=== PATIENT | male | born 1990 | race Caucasian/White ===

== ENCOUNTER 2017-09-23 16:58 | Emergency (ER) | payer SELFPAY ==
[2017-09-23] MEDS ORDERED: ALBUTEROL INH PREPACK MDI TAKEHOME ONE (18:30)
--- NOTE | 2017-09-23 18:30 | EDPHY ---
General - History Smoking Status: Former smoker Time Seen by Provider: 09/23/17 18:23 Narrative: CHIEF COMPLAINT: Cough HISTORY OF PRESENT ILLNESS: Patient presents with complaints of cough. He reports he has had a cough for nearly 2 months. He says this started with started using electronic cigarette vaporizer. He reports intermittent cough that never goes away. It is worse in the mornings when lying supine. Minimal improvement throughout the day. He has taken tuqb-qpf-kctakqn Tylenol. He has had no chest pain or shortness of breath. No fever. He has had some runny nose, sinus congestion, occasional sore throat. No abdominal urinary complaints. No headache, neck pain or stiffness. No other associated complaints or modifying factors. REVIEW OF SYSTEMS: Ten systems reviewed and are negative unless otherwise noted in the HPI PCP: [facility] SPECIALISTS: None PAST MEDICAL HISTORY: Polycystic kidney disease. PAST SURGICAL HISTORY: No surgical history SOCIAL HISTORY: Lives and works here independently. Admits to electronic cigarette use. Occasional alcohol use. Occasional illicit substance use FAMILY HISTORY: Noncontributory EXAMINATION General Appearance: Alert, no distress. Well-developed well-nourished. Head: normocephalic, atraumatic Eyes: Pupils equal and round, no conjunctival pallor or injection ENT, Mouth: Mucous membranes moist. Uvula is midline. Airway is widely patent. No trismus Neck: Normal inspection, supple, non-tender. No meningismus Respiratory: Scattered rhonchi with minimal expiratory wheezes. No consolidation or diminishment. No retractions or distress. Cardiovascular: Regular rate and rhythm. No murmur Neurological: A&O, nonfocal, normal gait Skin: Warm and dry, no rash no petechiae or purpura Extremities: Nontender, no pedal edema Psychiatric: Mood and affect normal DIFFERENTIAL DIAGNOSES: Including but not limited to viral bronchitis, bacterial bronchitis, chronic bronchitis, inflammatory bronchitis, pneumonia, pneumonitis, influenza, RSV MDM: 6:30 p.m. Acute bronchitis with possible involvement of his electronic cigarette use. His vital signs are within normal limits. He is in no acute distress. He does not want a chest x-ray performed due to a fear of the cost associated with. I do feel it is reasonable to treat him with antibiotics given the duration of the symptoms. We discussed the possibility of viral and other etiologies, and that this may not be helpful. We discussed short course of steroid, over-the- counter anti tussive and mucolytics. We discussed ED precautions and follow up with [facility]. I have answered all of his questions, he is comfortable this plan, and he is discharged home stable condition. SUPERVISION: This patient was independently evaluated without direct involvement of or examination by the attending physician. (Biju Polk) Discussion: The patient was evaluated and managed by the Physician Child Welfare Worker. My co- signature indicates that I have reviewed this chart and I agree with the findings and plan of care as documented. I am the secondary supervising physician. (Mallorie Alexander) - Objective Vital Signs: Initial Vital Signs Temperature (C) 36.6 C 09/23/17 17:08 Heart Rate 61 09/23/17 17:08 Respiratory Rate 18 09/23/17 17:08 Blood Pressure 167/110 H 09/23/17 17:08 O2 Sat (%) 98 09/23/17 17:08 O2 Delivery Mode Room Air Allergies/Adverse Reactions: No Known Allergies Allergy (Verified 09/23/17 17:07) Home Medications: Medication Instructions Recorded Azithromycin [Zithromax] 250 mg PO DAILY #6 tab 09/23/17 Dexamethasone [Decadron 4 MG (*)] 8 mg PO DAILY #4 tab 09/23/17 hydrOXYzine HCL [Hydroxyzine HCl] 50 mg PO Q6-8PRN PRN #12 tablet 09/23/17 Medications Given: Discontinued Medications Albuterol Sulfate (Proventil Inh Prepack) 1 mdi FRANCES HONG ONE Stop: 09/23/17 18:31 Last Admin: 09/23/17 18:52 Dose: 1 mdi Departure - Departure Disposition: Home, Routine, Self-Care Clinical Impression: Acute bronchitis Upper respiratory infection Qualifiers: URI type: unspecified URI Qualified Code(s): J06.9 - Acute upper respiratory infection, unspecified Condition: Good Instructions: Acute Bronchitis (ED) Additional Instructions: 1. Prescription dexamethasone as prescribed 1 dose today and 1 additional dose tomorrow 2. Prescription azithromycin to completion 3. Mhmt-utl-abdquqq dextromethorphan for cough as instructed on the box 4. Nqra-kfc-rclgxcm Mucinex for expectorant/mucous relief as instructed on the box 5. Gcyg-qbl-irshrtj ibuprofen, 400-600 mg every 6-8 hours as needed 6. Hydroxyzine as prescribed as needed for anxiety 7. Contact [facility] for outpatient care 8. ED precautions as discussed Referrals: [facility],. [Clinic] - As per Instructions Ro Parsons MD [Medical Doctor] - As per Instructions Stand Alone Forms: Work Excuse Prescriptions: Azithromycin [Zithromax] 250 mg PO DAILY #6 tab Dexamethasone [Decadron 4 MG (*)] 8 mg PO DAILY #4 tab hydrOXYzine HCL [Hydroxyzine HCl] 50 mg PO Q6-8PRN PRN #12 tablet PRN Reason: Anxiety
[2017-09-23 19:04] VITALS: BP 122/69
== END 2017-09-23 19:01 | disposition home or self-care (01) ==
DX: J20.9 Acute bronchitis, unspecified (principal); J06.9 Acute upper respiratory infection, unspecified; Z87.891 Personal history of nicotine dependence

== ENCOUNTER 2018-04-20 12:50 | Emergency (ER) | payer MEDICAID, OTHER ==
[2018-04-20 12:56] VITALS: BP 146/79
--- NOTE | 2018-04-20 13:47 | EDPHY ---
H & P Stated Complaint: cough x 2 months/noted blood at r tonsillar area post coughing Time Seen by Provider: 04/20/18 13:37 HPI/ROS: CHIEF COMPLAINT: Bleeding from tonsil HISTORY OF PRESENT ILLNESS: The patient presents the ED after he noticed some bleeding from his right tonsil. The patient has had a several month history of tonsillar enlargement. He has been bothered by a chronic dry coughed. The patient reports that he is currently working with his primary care provider for evaluation of more significant neurologic issues. Patient reported that he had had fairly heavy bleeding earlier today which resolved. REVIEW OF SYSTEMS: A comprehensive 10 point review of systems is otherwise negative aside from elements mentioned in the history of present illness. Source: Patient - Personal History Current Tetanus Diphtheria and Acellular Pertussis (TDAP): Yes - Medical/Surgical History Hx Asthma: No Hx Chronic Respiratory Disease: No Hx Diabetes: No Hx Cardiac Disease: No Hx Renal Disease: Yes Hx Cirrhosis: No Hx Alcoholism: No Hx HIV/AIDS: No Hx Splenectomy or Spleen Trauma: No Other PMH: polycystic kidney disease - Social History Smoking Status: Former smoker - Physical Exam Exam: General Appearance: Alert, no distress Eyes: Pupils equal and round no pallor or injection ENT, Mouth: Bilateral tonsillar hypertrophy, ulcerative lesion noted on the right tonsil now hemostatic Respiratory: There are no retractions, lungs are clear to auscultation Cardiovascular: Regular rate and rhythm Gastrointestinal: Abdomen is soft and nontender, no masses, bowel sounds normal Neurological: A&O, normal motor function, normal sensory exam, normal cranial nerves Skin: Warm and dry, no rashes Musculoskeletal: Neck is supple nontender Extremities: symmetrical, full range of motion Psychiatric: Patient is oriented X 3, there is no agitation Constitutional: Initial Vital Signs Temperature (C) 37 C 04/20/18 12:53 Heart Rate 56 L 04/20/18 12:53 Respiratory Rate 18 04/20/18 12:53 Blood Pressure 146/79 H 04/20/18 12:53 O2 Sat (%) 98 04/20/18 12:53 O2 Delivery Mode Room Air Allergies/Adverse Reactions: No Known Allergies Allergy (Verified 04/20/18 12:53) Home Medications: Medication Instructions Recorded NK [No Known Home Meds] 04/20/18 Medical Decision Making ED Course/Re-evaluation: Patient presents to the ED with bleeding from a tonsil now resolved from a ulcerated lesion noted to the tonsil. The patient will be referred to our on-call Ear Nose Throat physician for further evaluation. Patient has no clinical evidence of pneumonia or pharyngitis. Patient is instructed to return to the ED for uncontrolled bleeding or other concerns. I spoke with Sho Clark from ENT who will evaluate the patient office now. Departure - Departure Disposition: Home, Routine, Self-Care Clinical Impression: Hemorrhage of tonsil Condition: Good Additional Instructions: 1. Please go to [facility] for evaluation of the lesions seen on your tonsil. They are expecting you and you will be seen by Sho Clark. Referrals: Sho Clark PA [Physician City Editor] - As per Instructions
== END 2018-04-20 13:57 | disposition home or self-care (01) ==
DX: J35.8 Other chronic diseases of tonsils and adenoids (principal)

== ENCOUNTER 2018-05-16 14:33 | Emergency (ER) | payer OTHER ==
--- NOTE | 2018-05-16 15:16 | EDPHY ---
H & P Time Seen by Provider: 05/16/18 15:15 HPI/ROS: CHIEF COMPLAINT: Palpitations, heart skipping a beat HISTORY OF PRESENT ILLNESS: Patient started feeling symptoms 90 min prior to arrival, he says around 1:45 p.m. Today. He had stressful weekend with a lot of work and extra drinking. He says he does not drink every day. Over the past hour and a half since 1:45 p.m. He says he feels like his heart is pounding in his chest and little bit irregular. He had a couple episodes of sweatiness with nausea and feeling lightheaded but no actual fainting or syncope. Denies leg swelling chest pain or shortness of breath. He did state he was feeling anxious and hyperventilating a little bit in his fingers feel tingly but that is better now. No vomiting or diarrhea, no cough or shortness of breath. REVIEW OF SYSTEMS: Eye: no change in vision ENT: no sore throat Cardiac: HPI Pulmonary: no cough or SOB Abdomen: no vomiting, diarrhea, abdominal pain Musculoskeletal: no back pain Skin: no rash Neuro: no headache Constitutional: no fever : no urinary symptoms A comprehensive 10 point review of systems is otherwise negative aside from elements mentioned in the history of present illness. PAST MEDICAL HISTORY: Includes polycystic kidney Family history of premature coronary disease in the man in his family. Social history: Denies cocaine or drugs this weekend. General Appearance: Alert and conversant, cooperative. Eyes: No scleral icterus. ENT, Mouth: Normal mucous membranes. Respiratory: Normal respiratory effort, breath sounds equal, lungs are clear to auscultation. Cardiovascular: Regular rate and rhythm. Occasional extrasystole. Gastrointestinal: Abdomen is soft and non tender. Neurological: Alert, face symmetric, normal motor and sensory in extremities. Skin: Warm and dry, no rashes. Musculoskeletal: No peripheral edema. No calf tenderness. Psychiatric: Not agitated. Emergency Department course/MDM: Monitor reviewed shows combination of sinus arrhythmia and premature atrial contractions, reviewed with the patient. He is having these in the emergency department and those on the monitor correlate with timing of his symptoms. I think it is unlikely as ACS or PE, significant metabolic abnormality, malignant dysrhythmia. Discharge with reassurance, patient says he is comfortable with this. Smoking Status: Former smoker Constitutional: Initial Vital Signs Temperature (C) 36.8 C 05/16/18 14:45 Heart Rate 69 05/16/18 14:45 Respiratory Rate 18 05/16/18 14:45 Blood Pressure 140/84 H 05/16/18 14:45 O2 Sat (%) 100 05/16/18 14:45 O2 Delivery Mode Room Air Allergies/Adverse Reactions: No Known Allergies Allergy (Verified 05/16/18 14:45) Home Medications: Medication Instructions Recorded NK [No Known Home Meds] 04/20/18 Medical Decision Making - Diagnostics EKG Interpretation: 12-lead EKG interpreted by me; official reading is in computer system. My interpretation is sinus rhythm with borderline right axis, rate 64. Departure - Departure Disposition: Home, Routine, Self-Care Clinical Impression: Heart palpitations, PAC (premature atrial contraction) Condition: Good Instructions: Heart Palpitations (ED), Premature Atrial Contractions (ED) Referrals: [facility],. [Primary Care Provider] - As per Instructions
--- NOTE | 2018-05-16 15:22 | CPEKG ---
Test Reason : OPEN Blood Pressure : / mmHG Vent. Rate : 064 BPM Atrial Rate : 065 BPM P-R Int : 151 ms QRS Dur : 104 ms QT Int : 422 ms P-R-T Axes : 003 091 003 degrees QTc Int : 436 ms Sinus rhythm Borderline right axis deviation Confirmed by Jonah Truong ([id number]) on 05/16/2018 3:21:42 PM Referred By: PHYSICIAN ED Confirmed By:Jonah Truong
[2018-05-16 15:41] VITALS: BP 157/83
== END 2018-05-16 15:35 | disposition home or self-care (01) ==
DX: R00.2 Palpitations (principal); I49.1 Atrial premature depolarization